=== PATIENT | female | born 1960 | race Caucasian/White ===

== ENCOUNTER 2018-12-20 12:01 | Emergency (ER) | payer MEDICAID ==
[~2018-12-20] VITALS: Wt 75.9 kg
[2018-12-20 12:33] VITALS: Wt 75.9 kg
[2018-12-20] MEDS ORDERED: SODIUM CHLORIDE 0.9% 1L BAG IV* STA (12:49)
--- NOTE | 2018-12-20 12:52 | ERD ---
ER Documentation Chief Complaint Chief Complaint prod cough x2wks, interm SOB. no meds taken. denies NVD HPI The patient is a 58-year-old female, presenting to the ER because of intermittent cough for the last 2 weeks, complains of fever today, denies neck pain, chest pain, dyspnea, abdominal pain, vomiting, dysuria, diarrhea. She does not smoke, denies any recent traveling Past medical history: None Past surgical history: Hysterectomy ROS All systems reviewed and are negative except as per history of present illness. Medications Home Meds Active Scripts Ibuprofen* (Motrin*) 600 Mg Tab, 600 MG PO Q6H PRN for PAIN AND OR ELEVATED TEMP, #30 TAB Prov:TRICE CARRANZA MD 12/20/18 Dextromethorphan Hb-Promethazine Hcl* (Promethazine DM* Syrup) 473 Ml Syrup, 10 ML PO Q6 PRN for COUGH, #120 ML Prov:TRICE CARRANZA MD 12/20/18 Azithromycin* (Zithromax*) 250 Mg Tablet, 250 MG PO .ZPACK DIRECTED, #6 TAB TAKE 500 MG (2 TABS) THE FIRST DAY THEN 250 MG (1 TAB) DAYS 2-5 Prov:TRICE CARRANZA MD 12/20/18 Discontinued Reported Medications [None] No Conflict Check 01/23/10 Allergies Allergies: Coded Allergies: Penicillins (Verified Allergy, Unknown, 12/20/18) PMhx/Soc History of Surgery: Yes (2005 HYSTERECTOMY) Anesthesia Reaction: No Hx Neurological Disorder: No Hx Respiratory Disorders: No Hx Cardiac Disorders: No Hx Psychiatric Problems: No Hx Miscellaneous Medical Probl: No Hx Alcohol Use: No Hx Substance Use: No Hx Tobacco Use: No Physical Exam Vitals Vital Signs Date Temp Pulse Resp B/P (MAP) Pulse Ox O2 O2 Flow FiO2 Time Delivery Rate 12/20/18 Nasal 2 13:08 Cannula 12/20/18 102.1 106 20 145/70 97 12:33 (95) Physical Exam Const: No acute distress. Head: Atraumatic. Eyes: Normal Conjunctiva. ENT: Normal External Ears, Nose and Mouth. Bilateral tympanic membranes and oropharynx are within normal limit Neck: Full range of motion. No meningismus. Resp: Clear to auscultation bilaterally. Cardio: Regular tachycardic Abd: Soft, non distended, normal bowel sounds, non tender. Skin: No petechiae or rashes. Back: No midline or flank tenderness. Ext: No cyanosis, or edema. Neur: Awake and alert. No focal deficit Psych: Normal Mood and Affect. Result Diagram: 12/20/18 1307 12/20/18 1307 Results 24 hrs Laboratory Tests Test 12/20/18 13:06 12/20/18 13:07 12/20/18 14:06 POC Venous Lactate 1.7 mmol/L White Blood Count 11.6 10^3/ul Red Blood Count 4.99 10^6/ul Hemoglobin 14.1 g/dl Hematocrit 43.7 % Mean Corpuscular Volume 87.6 fl Mean Corpuscular Hemoglobin 28.3 pg Mean Corpuscular Hemoglobin Concent 32.3 g/dl Red Cell Distribution Width 12.6 % Platelet Count 317 10^3/UL Mean Platelet Volume 9.1 fl Immature Granulocytes % 0.300 % Neutrophils % 81.6 % Lymphocytes % 10.3 % Monocytes % 5.7 % Eosinophils % 1.7 % Basophils % 0.4 % Nucleated Red Blood Cells % 0.0 /100WBC Immature Granulocytes # 0.030 10^3/ul Neutrophils # 9.4 10^3/ul Lymphocytes # 1.2 10^3/ul Monocytes # 0.7 10^3/ul Eosinophils # 0.2 10^3/ul Basophils # 0.1 10^3/ul Nucleated Red Blood Cells # 0.0 10^3/ul Prothrombin Time 13.0 Sec Prothrombin Time Ratio 1.0 INR International Normalized Ratio 0.97 Activated Partial Thromboplast Time 31.1 Sec Sodium Level 140 mmol/L Potassium Level 4.2 mmol/L Chloride Level 105 mmol/L Carbon Dioxide Level 24 mmol/L Anion Gap 11 Blood Urea Nitrogen 15 mg/dl Creatinine 0.53 mg/dl Est Glomerular Filtrat Rate mL/min > 60 mL/min Glucose Level 121 mg/dl Calcium Level 9.0 mg/dl Total Bilirubin 0.2 mg/dl Direct Bilirubin 0.00 mg/dl Indirect Bilirubin 0.2 mg/dl Aspartate Amino Transf (AST/SGOT) 26 IU/L Alanine Aminotransferase (ALT/SGPT) 34 IU/L Alkaline Phosphatase 93 IU/L Troponin I < 0.012 ng/ml Total Protein 7.8 g/dl Albumin 4.3 g/dl Globulin 3.50 g/dl Albumin/Globulin Ratio 1.22 Bedside Urine pH (LAB) 6.0 Bedside Urine Protein (LAB) Negative Bedside Urine Glucose (UA) Negative Bedside Urine Ketones (LAB) Negative Bedside Urine Blood 1+ Bedside Urine Nitrite (LAB) Negative Bedside Urine Leukocyte Esterase (L Negative Current Medications Medications Dose Sig/Dodie Start Time Status Last (Trade) Ordered Route PRN Stop Time Admin Dose Reason Admin Sodium 2,280 ml BOLUS OVER 2 12/20/18 DC 12/20/18 Chloride HOURS STAT 12:49 12/20/18 12:49 (NS) IV* 12:51 650 mg ONCE ONCE 12/20/18 DC 12/20/18 Acetaminophen PO 13:30 12/20/18 13:30 (Tylenol 13:31 Tab) Ibuprofen 600 mg ONCE ONCE 12/20/18 UNV (Motrin) PO 15:00 12/20/18 15:01 Procedures/[place] [id number] Radiology Main Line: [phone] DIAGNOSTIC IMAGING REPORT Patient: ISMA REBOLLAR : 1960 Age: 58 Sex: F MR #: [id number] DOS: 12/20/18 1249 Ordering MD: TRICE CARRANZA MD Location: E/R Room/Bed: PROCEDURE: XR Chest. CLINICAL INDICATION: chest pain TECHNIQUE: Single frontal view of the chest was obtained COMPARISON: None FINDINGS: The heart and mediastinum are within normal limits. The lungs are clear. There is no pleural effusion or pneumothorax. RPTAT: AA IMPRESSION: No acute disease. .Anant Sears MD, MD Date Time Electronically viewed and signed by .Anant Sears MD, MD on 12/20/2018 13:19 .S/ CC: TRICE CARRANZA MD [phone] EKG: Read by emergency physician Rate/Rhythm: Normal Sinus Rhythm 98 beats/min QRS, ST, T-waves: No ST elevation, no T inversion, LAD, IRBBB Impression: Abnormal EKG MEDICAL MAKING DECISION: The patient is a 58-year-old female, presenting with acute febrile illness, most likely due to acute bronchitis, was treated with normosaline 30 mm/kg IV upon arrival to the ER for acute dehydration, Tylenol and Motrin for fever with good response is stable for o/p follow-up The differential diagnoses considered include but are not limited to bronchitis that is concerning for acute lower respiratory infection, UTI, pneumonia, influenza Departure Diagnosis: Primary Impression: Bronchitis Additional Impression: Hematuria Condition: Good Comments She was discharged with Motrin, Zithromax, Phenergan DM I discussed the findings with the patient. I advised the patient to follow-up with the primary physician in about 2-3 days, sooner if needed and return if any concern. Disclaimer: Inadvertent spelling and grammatical errors are likely due to EHR/dictation software use and do not reflect on the overall quality of patient care. Also, please note that the electronic time recorded on this note does not necessarily reflect the actual time of the patient encounter. TRICE CARRANZA MD December 20, 2018 12:52
[2018-12-20] MEDS ORDERED: ACETAMINOPHEN 325 MG TAB PO ONE (13:30)
[2018-12-20] MEDS ORDERED: AZIT250T PO (14:38)
[2018-12-20] MEDS ORDERED: D-ME473S2 PO (14:39)
[2018-12-20] MEDS ORDERED: IBUP-1542 PO (14:39)
[2018-12-20] MEDS ORDERED: IBUPROFEN 600 MG TAB PO ONE (15:00)
[2018-12-20] MEDS ORDERED: FLUT9.9S NASAL (16:25)
[2018-12-20 16:28] VITALS: BP 135/72; PULSE 91; RESP 17
== END 2018-12-20 16:36 | disposition home or self-care (01) ==
LOC: E/R 12:01
DX: J40 Bronchitis, not specified as acute or chronic (principal); R31.9 Hematuria, unspecified
CPT/HCPCS: 36415; 71045; 80053; 81003; 83605; 84484; 85025; 85610; 85730; 87040; 93005; J7030; Z7502; Z7610